=== PATIENT | female | born 2000 | race Caucasian/White ===

== ENCOUNTER 2022-04-07 13:01 | Emergency (ER) | payer OTHER ==
[~2022-04-07] VITALS: Ht 170.2 cm; Wt 65.0 kg
[2022-04-07 13:12] VITALS: BP 106/40
[2022-04-07] MEDS ORDERED: ibuprofen 200mg tablet PO ONE (14:05)
== END 2022-04-07 15:07 | disposition home or self-care (01) ==
LOC: ER 13:02
DX: S93.401A Sprain of unspecified ligament of right ankle, initial encounter (principal); X58.XXXA Exposure to other specified factors, initial encounter; Y93.89 Activity, other specified; Y92.89 Other specified places as the place of occurrence of the external cause; Y99.8 Other external cause status
CPT/HCPCS: 29515; 73610; 99284; L1930